=== PATIENT | female | born 1960 | race Caucasian/White ===

== ENCOUNTER → 2016-07-31 | Outpatient (CLI) | payer OTHER ==
[~2016-07-31] MED LIST: EXFORGE
== END | disposition home or self-care (01) ==
LOC: C.LAB 07:17
PROVIDERS: ATTEND Internal Medicine
DX: E03.9 Hypothyroidism, unspecified (principal)

== ENCOUNTER → 2016-08-28 | Outpatient (CLI) | payer OTHER ==
[2016-08-28 13:17] LABS: URINE APPEARANCE CLEAR (CLEAR); URINE BILIRUBIN NEG (NEG); URINE COLOR YELLOW; URINE NITRITE NEG (NEG); URINE SPECIFIC GRAVITY 1.009 (1.000-1.030); UROBILINOGEN NEG (NEG); ZZUR CULT IF INDIC CLEAN CATCH NO
[2016-08-28 13:22] LABS: MANUAL MICROSCOPIC REQUIRED? NO; REVIEW REQ? NO
== END | disposition home or self-care (01) ==
LOC: C.LAB 11:16
PROVIDERS: ATTEND Internal Medicine
DX: R30.0 Dysuria (principal)

== ENCOUNTER → 2016-08-31 | Outpatient (CLI) | payer OTHER ==
[2016-08-31 11:02] LABS: URINE APPEARANCE CLEAR (CLEAR); URINE BILIRUBIN NEG (NEG); URINE COLOR YELLOW; URINE EPITHELIAL CELL AUTO 0-5 /lpf (0-5); URINE NITRITE NEG (NEG); URINE SPECIFIC GRAVITY 1.004 (1.000-1.030); UROBILINOGEN NEG (NEG); ZZUR CULT IF INDIC CLEAN CATCH NO
[2016-08-31 11:04] LABS: MANUAL MICROSCOPIC REQUIRED? NO; REVIEW REQ? NO
== END | disposition home or self-care (01) ==
LOC: C.LAB 10:04
PROVIDERS: ATTEND Internal Medicine
DX: R30.0 Dysuria (principal)

== ENCOUNTER → 2017-04-03 | Outpatient (CLI) | payer OTHER ==
[2017-04-03 10:06] LABS: ALB/GLOB RATIO 0.9 (0.9-2); ALT/SGPT 22 U/L (12-78); AST/SGOT 15 U/L (15-37); BLOOD UREA NITROGEN 14 mg/dl (7-18); BUN/CREATININE RATIO 15.3 (10-20); CALCIUM 9.2 mg/dl (8.5-10.1); CARBON DIOXIDE 25 mmol/L (21-32); CHLORIDE 108 mmol/L (98-107); CREATININE 0.89 mg/dl (0.60-1.20); GLUCOSE 85 mg/dl (70-99); HDL CHOLESTEROL 59 mg/dl; POTASSIUM 3.9 mmol/L (3.5-5.1); SODIUM 141 mmol/L (136-145)
[2017-04-03 10:17] LABS: ALKALINE PHOSPHATASE 108 U/L (45-117); CHOLESTEROL 211 mg/dl (0-200); CHOLESTEROL/HDL RATIO 3.6; LDL CHOLESTEROL CALCULATED 130 mg/dl; TRIGLYCERIDES 110 mg/dl (0-150); VERY LOW DENSITY LIPOPROT CALC 22 mg/dl
== END | disposition home or self-care (01) ==
LOC: C.LAB 06:50
PROVIDERS: ATTEND Internal Medicine
DX: Z13.1 Encounter for screening for diabetes mellitus (principal); E03.9 Hypothyroidism, unspecified; Z13.220 Encounter for screening for lipoid disorders

== ENCOUNTER 2022-05-16 06:36 | Observation (INO) ==
--- NOTE | 2022-04-21 10:47 | PAT Medication Instructions ---
Medication Instructions Date of Service April 21, 2022 Home Medications Medication Instructions Recorded cholecalciferol (vitamin D3) 50 2,000 units PO DAILY #30 caps 04/24/19 mcg (2,000 unit) capsule mesalamine 1.2 gram tablet,delayed 2.4 gm PO DAILY 8 weeks #112 tabs 04/24/19 release aspirin 81 mg tablet,delayed 81 mg PO DAILY Clot prevention #90 03/16/20 release tabs meloxicam 7.5 mg tablet 7.5 mg PO BID #60 tabs 02/06/22 Wheeled Walker #1 ea 03/24/22 citalopram 10 mg tablet 10 mg PO DAILY #90 tabs 04/17/22 irbesartan 300 mg tablet (Avapro) 300 mg PO DAILY #90 tabs 04/17/22 levothyroxine 25 mcg tablet 25 mcg PO DAILY #90 tabs 04/17/22 nebivolol 5 mg tablet 5 mg PO DAILY #90 tabs 04/17/22 rosuvastatin 5 mg tablet (Crestor) 5 mg PO .COMPLEX #8 tabs 04/17/22 multivitamin 1 tab PO QAM cholecalciferol (vitamin D3) 50 mcg (2,000 unit) capsule 2,000 units PO DAILY mesalamine 1.2 gram tablet,delayed release 2.4 gm PO DAILY aspirin 81 mg tablet,delayed release 81 mg PO DAILY Clot prevention meloxicam 7.5 mg tablet 7.5 mg PO BID citalopram 10 mg tablet 10 mg PO DAILY irbesartan 300 mg tablet (Avapro) 300 mg PO DAILY levothyroxine 25 mcg tablet 25 mcg PO DAILY nebivolol 5 mg tablet 5 mg PO DAILY rosuvastatin 5 mg tablet (Crestor) 5 mg PO .COMPLEX acetaminophen 500 mg tablet (Tylenol Extra Strength) 500 mg PO Q6H PRN Pain Continue as directed rosuvastatin 5 mg tablet (Crestor) 5 mg PO .COMPLEX ASK your surgeon for instructions meloxicam 7.5 mg tablet 7.5 mg PO BID ASK your prescriber and surgeon mesalamine 1.2 gram tablet,delayed release 2.4 gm PO DAILY DO NOT take the morning of surgery multivitamin 1 tab PO QAM cholecalciferol (vitamin D3) 50 mcg (2,000 unit) capsule 2,000 units PO DAILY irbesartan 300 mg tablet (Avapro) 300 mg PO DAILY Take morning of surgery With a small sip of water, OTHERWISE NOTHING TO EAT OR DRINK AFTER MIDNIGHT: aspirin 81 mg tablet,delayed release 81 mg PO DAILY Clot prevention (continue as normal unless told otherwise by surgeon) citalopram 10 mg tablet 10 mg PO DAILY levothyroxine 25 mcg tablet 25 mcg PO DAILY nebivolol 5 mg tablet 5 mg PO DAILY acetaminophen 500 mg tablet (Tylenol Extra Strength) 500 mg PO Q6H PRN Pain (if needed) Take evening before surgery acetaminophen 500 mg tablet (Tylenol Extra Strength) 500 mg PO Q6H PRN Pain (if needed) Other Notes If you have any questions please call us at [phone] or [phone] or [phone] or [phone]
--- NOTE | 2022-04-25 09:15 | Anesthesiology Consultation ---
Date of Service April 25, 2022 Assessment & Plan (1) Encounter for pre-operative examination: - COVID screening: Per assessment on 04/25: No known COVID-19 positive contacts or current COVID-19 related symptoms. Travel screen negative. Patient vaccinated. At surgeon discretion if preop Covid testing being done. - PCP office visit (02/06/22): "seen today for annual wellness.. Anxiety -we discussed trying to taper off citalopram.. Buttock/hip stiffness -try meloxicam. She will call if is not helping.. Hypothyroidism -she is due for laboratories.. Hypertension- blood pressure not optimal in the office today. Patient states that this has happened in the past. She will check home blood pressures.Follow-up in 1 year unless home blood pressures do not show improvement.. Cardiovascular: no chest pain, no dyspnea on exertion and no palpitations" - Outpatient joint assessment: Pt currently scheduled for inpatient pathway. If surgeon requests review for outpatient joint pathway, patient is acceptable candidate for outpatient joint program from anesthesia standpoint pending surgeon's office assessment of pt motivation/confirmation of strong home support/completion of same day joint program preop requirements. Chart Review Chart Review: Acceptable Risk for Surgery and Patient seen in Pre Admission Testing Teaching & Discussion Pre-Anesthesia Teaching/Discussion Notes: Instructed NPO after midnight before surgery,except medications with 15 cc of water. Medication instructions provided according to the PAT guidelines. History Surgery Operation Date: 05/16/22 07:00 Proposed Procedures p Left Total Knee Arthroplasty - Jason Avila MD Height/Weight Height: 5 ft 3 in Weight: 98 kg Allergies Allergy/AdvReac Type Severity Reaction Status Date / Time hydrocodone [From Vicodin] AdvReac Mild Anxiety Verified 04/19/22 10:26 acetaminophen [From Vicodin] AdvReac Unknown Unknown Verified 04/19/22 10:26 Medications Home Medications Medication Instructions Recorded Confirmed Last Taken multivitamin 1 tab PO QAM 12/01/18 04/19/22 Unknown cholecalciferol (vitamin D3) 50 2,000 units PO DAILY #30 caps 04/24/19 04/19/22 Unknown mcg (2,000 unit) capsule mesalamine 1.2 gram tablet,delayed 2.4 gm PO DAILY 8 weeks #112 tabs 04/24/19 04/19/22 Unknown release aspirin 81 mg tablet,delayed 81 mg PO DAILY Clot prevention #90 03/16/20 04/19/22 Unknown release tabs meloxicam 7.5 mg tablet 7.5 mg PO BID #60 tabs 02/06/22 04/19/22 Unknown Wheeled Walker #1 ea 03/24/22 03/24/22 Unknown citalopram 10 mg tablet 10 mg PO DAILY #90 tabs 04/17/22 04/19/22 Unknown irbesartan 300 mg tablet (Avapro) 300 mg PO DAILY #90 tabs 04/17/22 04/19/22 Unknown levothyroxine 25 mcg tablet 25 mcg PO DAILY #90 tabs 04/17/22 04/19/22 Unknown nebivolol 5 mg tablet 5 mg PO DAILY #90 tabs 04/17/22 04/19/22 Unknown rosuvastatin 5 mg tablet (Crestor) 5 mg PO .COMPLEX #8 tabs 04/17/22 04/19/22 Unknown acetaminophen 500 mg tablet 500 mg PO Q6H PRN Pain 04/19/22 04/19/22 Unknown (Tylenol Extra Strength) Past Medical History Medical History (Updated 04/25/22 @ 09:41 by Ivone Huerta) Calculus of kidney Crohns disease Well managed Depression Dyslipidemia Hypertension Hypothyroidism Obesity Osteoarthritis of knees, bilateral Exercise / Class Metabolic Activity III < 4 Walking/Shop/Light housework Past Family History Family History Mother Glaucoma Macular degeneration Hypertension Father Myocardial infarction Hypertension Lung cancer Brother Hypertension Denies family history of Cancer Stroke Asthma Past Surgical History Surgical History Hx of colonoscopy S/P carpal tunnel release Social History Smoking Status: Never smoker Do You Dip or Chew Tobacco: No Hx Alcohol Use: Yes (Socially ) Hx Substance Use: No substance use type: does not use Review of Systems Patient denies chest pain, shortness of breath, dyspnea on exertion, fever, chills, cough, wheezing, palpitations. Physical Exam Vital Signs VITALS BP 118/84 P 54 TEMP 98.5 SP02 99%RA RESP 18 PHYSICAL Full cervical extension range of motion. Full TMJ range of motion. TMD 3.5 finger breaths Mallampati Score 2 Dentition: intact Lungs: clear throughout to auscultation Cardiac: regular rate and rhythm, no murmurs noted Spine: normal Carotid arteries: negative bruit Extremities: no edema Lab Results Anesthesia Preop Results Results Anesthesia Widget: WBC 6.55 K/ul (4.8-10.8) 04/25/22 Hgb 13.2 g/dl (12.0-16.0) 04/25/22 Hct 40.9 % (34.1-44.9) 04/25/22 Plt 292 K/uL (130-400) 04/25/22 Na 141 mmol/L (136-145) 04/25/22 K 4.6 mmol/L (3.5-5.1) 04/25/22 Cl 107 mmol/L (98-107) 04/25/22 CO2 31 mmol/L (21-32) 04/25/22 BUN 17 mg/dl (6-23) 04/25/22 Creat 0.92 mg/dl (0.6-1.2) 04/25/22 Glucose Level 81 mg/dl (70-99(Fasting)) 04/25/22 PT 10.4 Seconds (9.0-12.0) 04/25/22 PTT 25.4 Seconds (21.0-31.0) 04/25/22 INR 1.0 (0.9-1.1) 04/25/22 Blood Type B Positive 04/25/22 Antibody Screen NEGATIVE 04/25/22 Testing Laboratory Results 02/21/22 TSH 2.105 Electrocardiogram Date: 04/25/22 NSR at 61bpm. Low voltage QRS. Chest X-Ray Date: 04/25/22 Findings: + NAD Echocardiogram Date: 03/30/20 EF 55-60%. No regional motion abnormality. Grade 2 diastolic dysfunction. No significant valvular disease. COVID-19 Risk Screen Screening Information COVID-19 Screen Date: 04/25/22 Exposure 21 Days Family/Household +COVID Last 21 Days: No Exposure 10 Days Any COVID Exposure Last 10 Days: No Symptoms Last 10 Days Experienced COVID Sx Last 10 Days: No + COVID 0-90 Days COVID + in Last 0-90 Days: No
--- NOTE | 2022-05-13 11:56 | History and Physical Report ---
DATE OF ADMISSION: 05/16/2022 CHIEF COMPLAINT: Bilateral knee pain and discomfort, left side greater than right. 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 She is referred by my partner, Dr. Ghotra. She has about 2- 3 years history of increasing bilateral knee pain and discomfort, left side worse than right. Pain i s mostly medial. She has been through extensive conservative care including injections, which have b ecome less successful over time. Pain is increased with weightbearing. She limps more as the day go es on. Difficulty going up and down steps. She would like to have her left knee replaced. PAST MEDICAL HISTORY: 1. Kidney stone. 2. Elevated cholesterol. 3. Hypertension. 4. Hypothyroidism. PAST SURGICAL HISTORY: Include carpal tunnel release. ALLERGIES: VICODIN AND HYDROCODONE. CURRENT MEDICATIONS: Include: 1. Aspirin once a day. 2. Vitamin D3. 3. Citalopram. 4. Avapro. 5. Levothyroxine. 6. Meloxicam. 7. Mesalamine. 8. Multivitamin. 9. Nebivolol. 10. Crestor. 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 No significant smoking history. FAMILY HISTORY: Noncontributory. REVIEW OF SYSTEMS: Negative for diabetes. No chest pain or shortness of breath. No history of DVT or PE. No known bleeding problems. PHYSICAL EXAMINATION: GENERAL: Shows a pleasant middle-aged female, looks to be in pretty good health. HEENT: Benign. NECK: Supple. No lymphadenopathy. LUNGS: Clear to auscultation. HEART: Regular rate and rhythm. ABDOMEN: Soft, nontender, nondistended. EXTREMITIES: Grossly neurovascularly intact except as follows. Examination of both knees revealed patient walks with just a slight bit of a limp. She has got varus alignment to both knees. Examination of the left knee reveals varus alignment. She is tender over medial joint line. Small knee effusion. Range of motion is 0-125. No instability. No pain with hi p motion. Examination of the right knee reveals similar varus deformity. She is tender over medial joint line. Small knee effusion. Range of motion 0-125. X-RAYS: X-rays of both knees reveal advanced bilateral knee DJD. She has complete loss of medial imtiaz int space on both sides. The left side is probably a little bit worse than right. ASSESSMENT: A 62-year-old female with medical comorbidities including elevated cholesterol, hyperten deonna, hypothyroidism, history of kidney stones with advanced bilateral knee degenerative joint diseas e, left side more symptomatic than right. She has failed conservative treatment. She would like to have her left knee replaced. PLAN: We will take him to the operating room and do left total knee replacement. The risks and bene fits of this procedure were explained to the patient and include but not limited to DVT, PE, , i nfection, neurological injury, vascular injury, bleeding problem, pain, limited range of motion, stif fness, failure to relieve her symptoms, incomplete relief of symptoms, etc. The patient understands and desires to proceed. Informed consent was obtained. As far as medicines, she is going to take her levothyroxine with a sip of water in the morning. She stopped the meloxicam. She will follow up 2 weeks postop. Job ID: [id number]
[~2022-05-16 06:36] MED LIST changes: +ACETAMINOPHEN 500 MG TAB PO SCH; +BUPIVACAINE 0.5 % 5 MG/1 ML PF 10ML VIAL ONE; +BUPIVACAINE LIPOSOME/PF 266 MG, BUPIVACAINE/EPINEPHRINE 50 ML, SODIUM CHLORIDE 0.9% 30 ... INFIL SCH; +CeleBREX 200 MG CAP PO SCH; -EXFORGE; +FAMOTIDINE 20 MG TAB PO SCH; +LR 500ML BOLUS, THEN 15ML/HR IV SCH; +LR 60ML/HR IV SCH; +METOCLOPRAMIDE HCL 10 MG TABLET PO SCH; +Scopolamine 1 MG TDSY TD SCH; +TRANEXAMIC ACID 1,000 MG **IV Intra-op IV SCH; +ceFAZolin 2000MG 2,000 MG/15 ML SYR IV SCH
--- NOTE | 2022-05-16 06:57 | History & Physical Bridge Note ---
Date of Service May 16, 2022 History & Physical Bridge Note I have examined the patient, reviewed the History & Physical and in the interval since the performance of the History & Physical I have noted the following changes of clinical significance: no changes noted
[2022-05-16] MEDS: Scopolamine CHECK PATCH PLACEMENT SCH (07:17)
[2022-05-16] MEDS ORDERED: PROPOFOL IV EMULSION 10 MG/ML 20 ML VIAL IV ONE ×3 (07:45→09:33)
[2022-05-16] MEDS ORDERED: ONDANSETRON INJ 2 MG/ML 2 ML VIAL ONE (07:45)
[2022-05-16] MEDS ORDERED: fentaNYL citrate 100 MCG/2 ML VIAL ONE (07:46)
[2022-05-16] MEDS ORDERED: MIDAZOLAM HCL 1 MG/ML 2ML VIAL ONE ×2 (07:46→09:21)
[2022-05-16] MEDS ORDERED: fentaNYL citrate 100 MCG/2 ML VIAL IV PRN (08:14)
[2022-05-16] MEDS ORDERED: ONDANSETRON INJ 2 MG/ML 2 ML VIAL IV PRN ×2 (08:14→12:07)
[2022-05-16] MEDS ORDERED: ePHEDrine sulfate 50 MG/ML AMP IV PRN (08:14)
[2022-05-16] MEDS ORDERED: ATROPINE SULFATE 0.1 MG/ML 10ML SYR IV PRN (08:14)
[2022-05-16] MEDS ORDERED: SODIUM CHLORIDE 0.9% PF 50 ML VIAL ONE (08:53)
[2022-05-16] MEDS ORDERED: BUPIVACAINE LIPOSOME 1.3% 266 MG/20 ML VIAL ONE (08:53)
[2022-05-16] MEDS ORDERED: BUPIVACAINE/EPINEPHRINE 0.25% 1:200,000 30 ML VIAL ONE (08:53)
[2022-05-16] MEDS ORDERED: ePHEDrine sulfate 50 MG/ML AMP ONE (09:34)
[2022-05-16] MEDS ORDERED: PHENYLEPHRINE 100MCG/ML 5ML SYR ONE (09:34)
--- NOTE | 2022-05-16 11:10 | Operative Report ---
PG Post Operative Report Pre & Post Diagnosis Operation Date: 05/16/22 08:50 Pre-Op Diagnosis: Degenerative Joint Disease Left Knee Post-Op Diagnosis: Degenerative Joint Disease Left Knee I identified the patient and participated in the time-out.: Yes Procedure Operation Date: 05/16/22 08:50 Actual Procedures p Left Total Knee Arthroplasty(Left) - Jason Avila MD Surgeon Jason Avila MD Foreign Language Professor LANCE Keith Estimated Blood Loss 50 Findings Consistent with Post-Op Diagnosis Operative findings real advanced left knee medial compartment DJD. She had pretty extensive grade 4 ldmg-uj-ajhd disease the medial compartment. She had less severe grade 4 disease of the patella. The lateral compartment is pretty well spared. Small to moderate sized knee joint effusion. Fluids 1100 cc Specimens Left knee sent for pathology Drains None Anesthesia Type Spinal MAC Complications none Disposition Accompanied Patient To Recovery: No Indications Patient is a 62-year-old female had a several year of increasing bilateral knee pain discomfort left side greater than the right. She been through extensive co nservative treatment which became less successful over time. X-rays revealed advanced left knee medial compartment arthritis. She elected proceed with total knee arthroplasty. Description of Procedure Operative implants consist of: 1 Biomet Vanguard size 62.5 left posterior stabilized femoral component. 2. Biomet size 67 tibial tray. 3. 10 mm posterior stabilized polyethylene insert. 4. 28 x 8 all Paller patella. Patient was taken the operating, identified, placed on the operating table supine position protectors were properly padded. IV antibiotics tried by anesthesia team. A spinal anesthetic and abductor canal block had provided in the holding area. Cristobal catheter was placed in sterile fashion. Left thigh turn was then placed in left lower extremities and prepped and draped in usual sterile fashion. The left leg was elevated exsanguinated with use of an Esmarch and the tourniquet was set at 300 mmHg. An anterior approach left knee was then performed through a longitudinal incision centered over the patella. Sharp dissection was carried through subcutaneous tissue down the extensor mechanism. A medial parapatellar arthrotomy incision was made. Some subperiosteal dissection was carried out medially. The fat pad was resected from Neath patella tendon. Lateral patellofemoral ligament was released. Patella subl uxated laterally and the knee was flexed. The osteophytes were taken off distal femur. ACL and PCL then released from distal femur the tibia subluxated anteriorly. External tibial alignment jig was then placed the interface the tibia and adjusted 14 mm medially. Proximal tibial cut was made remove about 2 mm of bone from most deficient aspect medial tibial plateau. The tibia was sized to a size 67. Some small osteophytes taken off medially. We tried to maximize coverage with a 67 tibial tray. Attention drawn the femur. The distal femur examined the sharp drop with intramedullary canal was suction. A left 5 degree valgus cutting guide was placed. Distal femoral cutting block was pinned in place but distal femoral cut was made to take an additional 3 mm bone off distal femur. The femur was then sized to a size 62.5. We did downsize this about a half a size. Even with this that was a little bit wide for her medial/lateral dimensions. The AP cutting block was pinned parallel to the epicondylar axis which was 4 degrees of external rotation. Anterior cut, anterior chamfer, posterior cut, posterior chamfer cuts were made. The box cutting guide was placed in a just slight laterally. The box cut was made. The knee was flexed. The remnants of the medial and lateral menisci were excised. The osteophytes were taken off the posterior aspect of femur. A trial femoral component was placed. Tibial tray was pinned in maximum external rotation and the drill and stem punch were used to create defect in proximal tibia for the tibial tray. Knee was then trialed and the 10 mm insert fit most appropriately. Attention drawn the patella. The patella was cleaned of all soft tissue. Patella thickness measured 21 mm in thickness was cut down to 13. Was sized to a size 28 patella. The lug holes were drilled for the 28 patella. The lateral osteophyte was removed. Patella button was placed. Knee was taken through range of motion and the patella tracked nicely with no thumbs test. Attention drawn to place the permanent components. All trial components were removed. A bone plug was placed into the distal femur limit blood loss. Double batch Palacos G cement was mixed. A Biomet Vanguard size 62.5 left posterior stabilized femoral component, size 67 tibial tray, a 10 mm posterior stabilized polyethylene insert, 28 x 8 all Paller patella then cemented in place. Knee was brought out into full extension until cement hardened. Final cement check was then performed. Pericapsular tissues were injected with total 100 cc of combination of 20 cc of Exparel, 30 cc normal saline, 50 cc of quarter percent Marcaine with epinephrine. Patient did receive 1 g tranexamic acid. The tourniquet was let down for final turn time of 56 minutes. Hemostasis assured with electrocautery. Extensor mechanism closed with combination 1 PDS suture #1 Vicryl suture in [id number] fashion. Extensor mechanism checked found to be intact and subcutaneous tissue then cl osed with 2 Dexon suture in buried interrupted fashion skin was closed skin amanda. Leg was then cleaned and dried a sterile dressing was Xeroform, 4 x 4's, sterile cast padding, Mayito bandage were applied. Patient then transferred to the recovery room in stable condition. The patient tolerated the procedure well and there were no complications. Arsen Keith, my physician enrichment assistant, was present for the entire procedure. His assistance was essential and required for appropriate patient positioning, prepping and draping, surgical exposure, performing the technical details of the operation, placement the implants, closure of the wound, and placement of the sterile bandage. I attest to the content of the Intraoperative Record and any orders documented therein. Any exceptions are noted below.
--- NOTE | 2022-05-16 11:30 | XRay Report ---
XR knee LT 1 or 2V routine HISTORY: 62 years-old Female Surgical Post Op [total joint arthroplasty COMPARISON: Knee radiographs 11/17/2021 TECHNIQUE: 2 views of the left knee FINDINGS: Total joint arthroplasty with patellar resurfacing. Anterior midline skin amanda are noted along wit h expected postoperative soft tissue swelling with deep tissue air. IMPRESSION: Total joint arthroplasty with expected postoperative changes. ACT 112: Negative or not required by law. The above report was generated using voice recognition software. It may contain grammatical, syntax o r spelling errors. Electronically signed by: Agustín Veliz M.D. 05/16/2022 11:29 AM
--- NOTE | 2022-05-16 11:40 | Anesthesiology Progress Note ---
Date of Service May 16, 2022 Anesthesia Post Procedure Vital Signs Vital Signs: Temp Pulse Resp BP Pulse Ox O2 Del Method O2 Flow Rate 05/16/22 11:30 71 22 144/69 H 100 Oxymask 3 05/16/22 11:20 81 14 148/70 H 100 Oxymask 4 05/16/22 11:11 97.9 F 86 16 121/55 L 100 Oxymask 5 05/16/22 07:05 97.9 F 68 18 193/99 H 98 Room Air Transfer of Care Handoff Completed per policy Notes Mental Status: alert / awake / arousable and participated in evaluation Patient Amnestic to Procedure: Yes Nausea / Vomiting: adequately controlled Pain: adequately controlled Airway Patency, RR, SpO2: stable & adequate BP & HR: stable & adequate Hydration State: stable & adequate Neuraxial Anesthesia: was administered and sensory block is resolving Anesthetic Complications: no major complications apparent and Pt Satisfied with anesthetic care
[2022-05-16] MEDS ORDERED: bisacodyL 10 MG SUPP PR PRN (12:07)
[2022-05-16] MEDS ORDERED: ALUMINUM/MAGNESIUM SUSP 30 ML UDC PO PRN (12:07)
[2022-05-16] MEDS ORDERED: HYDROmorphone INJ 0.5 MG/0.5 ML SYR IV PRN (12:07)
[2022-05-16] MEDS ORDERED: METOCLOPRAMIDE HCL INJ 5 MG/ML 2 ML VIAL IV PRN (12:07)
[2022-05-16] MEDS ORDERED: MAGNESIUM HYDROXIDE SUSP 30 ML UDC PO PRN (12:07)
[2022-05-16] MEDS ORDERED: diphenhydrAMINE Capsule 25 MG CAP PO PRN (12:07)
[2022-05-16] MEDS ORDERED: NALOXONE HCL 0.4 MG/1 ML VIAL/CARP IV PRN (12:07)
[2022-05-16] MEDS ORDERED: oxyCODONE HCL IR 5 MG TAB (IMMEDIATE RELEASE) PO PRN (12:07)
[2022-05-16] MEDS: SODIUM CHLORIDE 0.9% 1000ML 1,000 ML IV SCH ×2 (12:13→23:14)
[2022-05-16] MEDS ORDERED: TRANEXAMIC ACID / 0.7% NACL 1,000 MG/100 ML BAG IV SCH (17:15)
[2022-05-16] MEDS: KETOROLAC 30 MG/ML VIAL IV SCH (17:27)
[2022-05-16] MEDS: ACETAMINOPHEN 500 MG TAB PO SCH (17:30)
[2022-05-16] MEDS: ASCORBIC ACID 500 MG TAB PO SCH (17:30)
[2022-05-16] MEDS: ceFAZolin 2000MG 2,000 MG/15 ML SYR IV SCH (18:00)
[2022-05-16] MEDS: ASPIRIN 81 MG ECTAB PO SCH (20:27)
[2022-05-16] MEDS: DOCUSATE SODIUM 100 MG CAP PO SCH (20:27)
[2022-05-16] MEDS: TAPENTADOL HCL ER 50 MG TABCR PO SCH (20:31)
[2022-05-16] MEDS ORDERED: SENNA 8.6 MG TAB PO SCH (21:00)
[2022-05-17] MEDS: ACETAMINOPHEN 500 MG TAB PO SCH ×2 (00:24→10:21)
[2022-05-17] MEDS: KETOROLAC 30 MG/ML VIAL IV SCH ×3 (00:24→12:17)
[2022-05-17] MEDS: Scopolamine CHECK PATCH PLACEMENT SCH ×2 (00:33→10:20)
[2022-05-17] MEDS: ceFAZolin 2000MG 2,000 MG/15 ML SYR IV SCH (02:14)
[2022-05-17] MEDS ORDERED: LEVOTHYROXINE SODIUM 25 MCG TABLET PO SCH (06:30)
[2022-05-17] MEDS ORDERED: dexAMETHasone 10 MG in SYRINGE 0 ML IV SCH (08:00)
[2022-05-17 08:46] LABS: Hematocrit (blood only) 34.3 % (34.1-44.9); Mean Corpuscular Hemoglobin 28.5 pg (25.0-34.0); Mean Corpuscular Hgb Conc 32.1 g/dL (32.0-36.0); Mean Corpuscular Volume 88.9 fL (80.0-100.0); Mean Platelet Volume 9.4 fL (9.4-12.3); Platelet Count 223 K/uL (130-400); RDW Coefficient of Variation 14.5 % (11.5-14.5); RDW Standard Deviation 47.2 fL (36.4-46.3); Red Blood Count 3.86 M/uL (3.93-5.22)
[2022-05-17] MEDS ORDERED: NON-FORMULARY MEDICATION (Multivitamin Tablet) PO SCH (09:00)
[2022-05-17] MEDS ORDERED: MULTIVITAMIN TAB PO SCH (09:00)
[2022-05-17] MEDS ORDERED: MESALAMINE 400 MG CAPDR PO SCH (09:00)
[2022-05-17] MEDS ORDERED: IRBESARTAN 150 MG TAB PO SCH (09:00)
[2022-05-17] MEDS ORDERED: CHOLECALCIFEROL 1,000 UNITS 25 MCG TAB PO SCH (09:00)
[2022-05-17] MEDS ORDERED: METOPROLOL TARTRATE 25 MG TAB PO SCH (09:00)
[2022-05-17] MEDS ORDERED: ROSUVASTATIN CALCIUM 5 MG TAB PO SCH (09:00)
[2022-05-17] MEDS ORDERED: CITALOPRAM 20 MG TAB PO SCH (09:00)
[2022-05-17 09:16] LABS: BUN Creatinine Ratio 14.1 (10-20); Calcium 9.1 mg/dl (8.5-10.1); Est GFR (African American) 83.9 ml/min; Est GFR (Non-African American) 72.4 ml/min; Potassium 3.9 mmol/L (3.5-5.1)
[2022-05-17] MEDS: DOCUSATE SODIUM 100 MG CAP PO SCH (10:08)
[2022-05-17] MEDS: TAPENTADOL HCL ER 50 MG TABCR PO SCH (10:16)
[2022-05-17] MEDS: ASCORBIC ACID 500 MG TAB PO SCH (10:19)
[2022-05-17] MEDS: ASPIRIN 81 MG ECTAB PO SCH (10:19)
--- NOTE | 2022-05-17 11:41 | Progress Notes ---
SUBJECTIVE: A 62-year-old female, postoperative day 1 from a left knee replacement. She has done pr joaquim well. Pain is controlled. She had a pretty good night. Just about to start therapy. Denies a ny chest pain or shortness of breath. Not feeling dizzy or lightheaded. OBJECTIVE: VITAL SIGNS: Temperature is 36.7. Vital signs are stable. GENERAL: Shows a pleasant middle-aged female. She is sitting up in bed and looks quite comfortable. EXTREMITIES: Examination of the left leg reveals the dressing to be clean, dry and intact. She can dorsiflex and plantarflex her foot appropriately. She is neurologically intact. LABORATORY DATA: Hemoglobin 11.0. Hematocrit 34.3. Electrolytes are stable. ASSESSMENT: A 62-year-old female, postoperative day 1 from left knee replacement, doing pretty well. Pain is controlled. She is neurologically intact. She is hoping to go home today. PLAN: 1. DVT prophylaxis includes thigh-high TEDs, SCDs, and aspirin twice a day. 2. PT, OT, weightbear as tolerated. Left total knee protocol. 3. Pain control, doing okay with current pain regimen. 4. Disposition: Plan to discharge to home with some home health if she does okay in therapy today. Job ID: [id number]
--- NOTE | 2022-05-23 06:37 | Discharge Summary ---
Date of Service May 23, 2022 Discharge Data Procedures Performed Operation Date: 05/16/22 08:50 Actual Procedures p Left Total Knee Arthroplasty(Left) - Jason Avila MD Hospital Course (1) Status post total left knee replacement: This is a 62 year old patient admitted on 05/16/22 and underwent total knee arthroplasty. She tolerated the procedure well and there were no complications. Transferred to the PACU post op and later to the orthopedic floor for further care. She was given ancef for antibiotic prophylaxis. She was also given MEHDI stockings, SCDs, and aspirin for DVT prophylaxis. Hemoglobin, hematocrit, and vital signs were monitored during her hospital stay and remained stable. Did not require any blood transfusions. There were no complications during her hospital stay. By post op day #1 the patient was tolerating a regular diet, pain was reasonably controlled with oral pain medicine, and she was participating in physical therapy. On post op day #1 the patient was discharged home and set up with home health care. She was given printed discharge instructions including prescriptions for extra strength tylenol, aspirin, ketorolac, zofran, oxycodone, and senokot. Continue physical therapy, weight bearing as tolerated. Continue MEHDI stockings. Follow up approximately 2 weeks post op or sooner if there are problems or concerns. Coding Level of Care Code None Diagnoses Status post total left knee replacement Z96.652
== END 2022-05-17 13:11 | disposition home health service (06) ==
LOC: ASU 06:36 → 3E 06:36
DX: M65.9 Synovitis and tenosynovitis, unspecified; Z88.5 Allergy status to narcotic agent; I10 Essential (primary) hypertension; F41.9 Anxiety disorder, unspecified; M17.12 Unilateral primary osteoarthritis, left knee; Z87.442 Personal history of urinary calculi; Z79.899 Other long term (current) drug therapy; Z79.82 Long term (current) use of aspirin; E03.9 Hypothyroidism, unspecified; M25.762 Osteophyte, left knee; E78.00 Pure hypercholesterolemia, unspecified; Z79.1 Long term (current) use of non-steroidal anti-inflammatories (NSAID)